=== PATIENT | male | born 2005 | race Caucasian/White ===

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

== ENCOUNTER 2025-08-04 23:13 | Emergency (ER) | payer SELFPAY ==
[2025-08-04 23:17] VITALS: BP 126/74; PULSE 64; RESP 18; TEMP 36.8; O2SAT 100
[2025-08-05] MEDS: TETANUS,DIPHTHERIA,AC PERTUSSIS ADULT (0.5 ML) BOOSTRIX IM (00:53)
--- NOTE | 2025-08-05 00:53 | ED_ITS ---
HPI - Skin/Abscess/Foreign Bdy General Chief complaint: Skin/Abscess/Foreign Body Stated complaint: foreign body foot Time Seen by Provider: 08/05/25 00:43 Source: patient Mode of arrival: ambulatory Limitations: no limitations History of Present Illness HPI narrative: This is a 20-year-old male that presents to the emergency department for foreign body in the right foot. Reports he stepped on a piece of metal. He was able to remove this himself. He presents for tetanus vaccination. Related Data Allergies Allergy/AdvReac Type Severity Reaction Status Date / Time No Known Drug Allergies Allergy Mild Other Verified 08/04/25 23:19 Review of Systems Review of Systems: All systems reviewed & are unremarkable except as noted in HPI and below Exam Narrative: GENERAL: Well-appearing, well-nourished, and in no acute distress. HEAD: Normocephalic, atraumatic. EYES: EOMI. EXTREMITIES: Normal range of motion. No edema. Small puncture wound to the right foot plantar surface SKIN: Warm, dry, no rash. NEURO: No focal deficits. Alert and oriented x3. PSYCH: Normal mood and affect Course Vital Signs Vital signs: Vital Signs Temperature 98.3 F 08/04/25 23:17 Pulse Rate 64 08/04/25 23:17 Respiratory Rate 18 08/04/25 23:17 Blood Pressure 126/74 08/04/25 23:17 Pulse Oximetry 100 08/04/25 23:17 Oxygen Delivery Room Air 08/04/25 23:17 Temperature 98.3 F 08/04/25 23:17 Pulse Rate 64 08/04/25 23:17 Respiratory Rate 18 08/04/25 23:17 Blood Pressure 126/74 08/04/25 23:17 Pulse Oximetry 100 08/04/25 23:17 Oxygen Delivery Room Air 08/04/25 23:17 MDM - Skin/Abscess/Foreign Bdy MDM Narrative Medical decision making narrative: Patient presents emergency department after removing a small piece of metal from his foot for a tetanus vaccination. Patient was updated. Will be started on prophylactic antibiotic. He is to follow-up with primary provider. He was given warnings to return to the ER Differential Diagnosis Differential diagnosis: Likely other (foreign body, vaccination) Critical Care Time Critical Care Time Critical Care Time: No Discharge Plan Discharge Clinical Impression: Tetanus-diphtheria vaccination administered at current visit Patient Disposition: Home Condition: Stable Instructions: Antibiotic Form Additional Instructions: Return to the emergency department if you experience fever, redness or swelling of your wound, abnormal drainage from your wound, or any other symptoms that are concerning to you. Apply antibiotic ointment daily. Do not soak the wound. Clean with mild soap and water daily. Take oral antibiotic as prescribed Follow-up with your primary care doctor for wound check Patient Language: Armenian Prescriptions: New cephalexin 500 mg capsule 500 mg PO Q8H 7 Days Qty: 21 0RF Follow-up/Referrals: UNKNOWN,DOCTOR [Primary Care Provider]
--- OUTSIDE RECORDS SUMMARY | 2025-08-05 02:16 | XMS_ITS | Clinical Summary ---
Author Organization [facility] [employer] Address [address] [place] [address] Care Team Providers Care Manager Assessment Name Role Phone Kya Ellie Cota PA-C Primary Care Provider [phone] Robyn Douglas MD Unavailable [phone] Robyn Douglas MD Unavailable [phone] Lavonne Esqueda Unavailable [phone] Source Comments [facility],non-owned Affiliates and Associated Physician Practices is amultiple site organization consisting of ambulatory clinics and hospital sitesin [place], [place], [place] and [place]. This disclosure is being madepursuant to the Care Everywhere program and may not contain all information available regarding this patient. Last updated 18.[facility] Allergies No known active allergies Medications * Be aware that medications may not be up to date on this document. Alwaysverify current medications with the patient. No known medications Active Problems No known active problems Encounters Date Type Department Care Team Description 05/11/2025 11:20 AM CDT Clinical Support [facility] - Ophthalmology [address] [place] [phone] Mikayla Hutchison MD History of detached retina repair (Primary Dx); Status post eye surgery 05/11/2025 11:15 AM CDT Clinical Support [facility] [address] [place] [phone] Mikayla Hutchison MD Status post eye surgery (Primary Dx) 05/11/2025 9:45 AM CDT Office Visit [facility] [address] [place] [phone] Mikayla Hutchison MD History of detached retina repair (Primary Dx); 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; 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 Travel from Last 3 Months Social History Tobacco Use Types Packs/Day Years Used Date Smoking Tobacco: Never Smokeless Tobacco: Never Tobacco Cessation:Counseling Given: Not Answered Alcohol Use Standard Drinks/Week Comments Yes 0 (1 standard drink = 0.6 oz pur e alcohol) social PHQ-2 Answer Date Recorded Patient Health Questionnaire-2 Score 0 01/30/2025 Sex and Gender Information Value Date Recorded Sex Assigned at Not on file Legal Sex Male 11:51 AM CDT Gender Identity Not on file Sexual Orientation Not on file Last Filed Vital Signs Vital Sign Reading Time Taken Comments Blood Pressure 119/68 12/11/2024 4:04 PM CABLE SPOOLER Pulse 113 12/11/2024 4:04 PM CABLE SPOOLER Temperature 36.3 C (97.4 F) 12/11/2024 3:29 PM CABLE SPOOLER Respiratory Rate 15 12/11/2024 4:04 PM CABLE SPOOLER Oxygen Saturation 95% 12/11/2024 4:04 PM CABLE SPOOLER Inhaled Oxygen Concentration - - Weight 82.6 kg (182 lb) 12/11/2024 11:25 AM CABLE SPOOLER Height 180.3 cm (5' 11) 12/11/2024 11:25 AM CABLE SPOOLER Body Mass Index 25.38 12/11/2024 11:25 AM CABLE SPOOLER Plan of Treatment Upcoming Encounters Date Type Department Care Team (Late st Contact Info) Description 11/13/2025 9:15 AM CABLE SPOOLER Office Visit [facility] [address] [place] [phone] Mikayla Hutchison MD [address] [place] [address] [place] [phone] Health Maintenance Due Date Last Done Comments HIV SCREENING 2019 HPV VACCINE (1 - Male 3-dose series) 2019 MENINGOCOCCAL (Group B) VACCINE SHARED DECISION-MAKING (1 of 2 - Standard) 2020 HEPATITIS C SCREENING 06/12/2022 DTAP/TDAP/TD VACCINES (1 - Tdap) 2023 HEPATITIS B VACCINE (1 of 3 - 19+ 3-dose series) 2023 COVID-19 VACCINE (1 - 2023-2 5 season) 2025 INFLUENZA VACCINE (#1) 2025 2, 09/26/2010 ZOSTER VACCINE (1 of 2) 2054 DEPRESSION SCREENING Completed 01/30/2025 HIB VACCINE Aged Out No longer eligi ble based on patient's age to complete this topic MENINGOCOCCAL GROUPS A/C/Y/W VACCINE Aged Out No longer eligible b ased on patient's age to complete this topic PNEUMOCOCCAL VACCINE Aged Out No long er eligible based on patient's age to complete this topic Medical Devices Implanted Type Area Power Technician Device Identifier Shelf Expiration Date Model / Serial / Lot Scleral Buckling Product Style 72 Silicone Sleeve Implanted:Qty: 1 on 12/11/2024 by Mikayla Hutchison MD at [facility] Left: Eye [employer] 02/03/2028 92-30 / N/A / [id number] Description:Soaked in 4 ml ( 40 mg/ml) Gentamicin. Strip Sclr 4mm Lakshmi Strl Implanted:Qty: 1 on 12/11/2024 by Mikayla Hutchison MD at [facility] Left: Eye [employer] 92-10 / / Procedures Procedure Name Priority Date/Time Associated Diagnosis Comments RETINAL ANALYSIS OCT Routine 05/11/2025 11:10 AM CDT Status post eye surgery History of detached retina repair from Last 3 Months Results * RETINAL ANALYSIS OCT (05/11/2025 11:10 AM CDT) Anatomical Region Laterality Modality Head External-Camera Photography Narrative 05/11/2025 11:49 AM CDT Images from the original result were not included. OCT : OD normal OS: residual pockets of SRF, improving from prior Bottom today us Mikayla Hutchison MD OPHTHALMOLOGY SCHED ORD W PACS Final Result from Last 3 Months Insurance [facility] Care Teams Manager Assessment Relationship Specialty Start Date End Date Ellie Boland PA-C [address] [facility] [address] [place] [phone] PCP - General Physician Wine Sales Representative 12/08/24 Robyn Douglas MD [address] [place] [address] [address] [place] [address] 12/08/24 Robyn Douglas MD [address] [place] [address] [address] [place] [address] Pediatrics 05/21/20 Lavonne Esqueda PA [address] [place] [phone] (Work) Physician Wine Sales Representative Physician Wine Sales Representative 05/18/20
--- OUTSIDE RECORDS SUMMARY | 2025-08-05 02:16 | XMS_ITS | Encounter Summary ---
Author Organization [facility] Address [address] [place] [address] Care Team Providers Care Silhouette Artist Name Role Phone Kya Ellie Cota PA-C Primary Care Provider [phone] Robyn Douglas MD Unavailable [phone] Robyn Douglas MD Unavailable [phone] Lavonne Esqueda Unavailable [phone] Reason for Visit * Reason Onset Date Comments Reschedule Appointment 01/19/2025 Encounter Details Date Type Department Care Team (Late st Contact Info) Description 01/19/2025 Telephone [facility] [address] [place] [phone] Mikayla Hutchison MD [address] [place] [address] [place] [phone] Reschedule Appointment Social History Tobacco Use Types Packs/Day Years Used Date Smoking Tobacco: Never Smokeless Tobacco: Never Alcohol Use Standard Drinks/Week Comments Yes 0 (1 standard drink = 0.6 oz pur e alcohol) social Sex and Gender Information Value Date Recorded Sex Assigned at Not on file Legal Sex Male 11:51 AM CDT Gender Identity Not on file Sexual Orientation Not on file documented as of this encounter Miscellaneous Notes * Telephone Encounter - Akin Eaton - 01/19/2025 10:45 AM CDT Mother is calling to fausto 3.26.25 appt # [phone] documented in this encounter Plan of Treatment Upcoming Encounters Date Type Department Care Team (Late st Contact Info) Description 11/13/2025 9:15 AM LABVIEW PROGRAMMER Office Visit [facility] [address] [place] [address], [place] [phone] Mikayla Hutcihson MD [address] [place] [address] [place] [phone] documented as of this encounter Visit Diagnoses Not on filedocumented in this encounter Care Teams Silhouette Artist Relationship Specialty Start Date End Date Ellie Boland, PA-C [address] [facility] [address] [place] [phone] PCP - General Physician Wood Furniture Assembler 12/08/24 Robyn Douglas MD [address] [place] [phone] 12/08/24 Robyn Douglas MD [address] [place] [phone] Pediatrics 05/21/20 Lavonne Esqueda PA [address] [place] [phone] (Work) Physician Wood Furniture Assembler Physician Wood Furniture Assembler 05/18/20 documented as of this encounter
--- OUTSIDE RECORDS SUMMARY | 2025-08-05 02:16 | XMS_ITS | Clinical Summary ---
Author Organization [facility] [address] [facility] Address [address] [place] [address] Care Team Providers Care Metal Cabinet Finisher Name Role Phone Ellie Boland Primary Care Provider [phone] Allergies No known active allergies Medications No known medications Active Problems Problem Noted Date Diagnosed Date Hematuria 10/07/2022 Assessment & Plan (10/07/2022 10:38 PM UNIFORM ATTENDANT): Hematuria without any pain. Will treat with Cipro 1 tablet b.i.d. for 7 days. Send urine for culture and urinalysis as well as obtain gonorrhea chlamydia by urine. Reviewed with patient if his symptoms worsen if he gets to where he is not able to urinate at all. Starts having fever chills or sweats or increased back pain he is to consider the ER if it is after hours our call the office for immediate evaluation. He verbalizes understanding. Will await culture results. Routine screening for STI (sexually transmitted infection) 10/07/2022 Assessment & Plan (10/07/2022 10:38 PM UNIFORM ATTENDANT): Hematuria without any pain. Will treat with Cipro 1 tablet b.i.d. for 7 days. Send urine for culture and urinalysis as well as obtain gonorrhea chlamydia by urine. Reviewed with patient if his symptoms worsen if he gets to where he is not able to urinate at all. Starts having fever chills or sweats or increased back pain he is to consider the ER if it is after hours our call the office for immediate evaluation. He verbalizes understanding. Will await culture results. Screening-pulmonary TB 09/04/2022 Assessment & Plan (09/04/2022 5:03 PM CDT): Patient needs screening for tuberculosis. Discussed QuantiFERON gold verses PPD. He prefers the placement of the ppd here in the office. He plans to return 48-72 hours for to be red. Also reviewed with patient that I need his immunization records specifically Tdap MMR varicella and polio to be able to complete his form. He will bring them back with him at his next visit to read the PPD. BMI 23.0-23.9, adult 04/12/2021 Assessment & Plan (09/04/2022 5:02 PM CDT): Weight/BMI is in healthy range. Continue healthy lifestyle to maintain. Assessment & Plan (04/12/2021 10:16 AM CDT): Weight/BMI is in healthy range. Continue healthy lifestyle to maintain. Annual physical exam 04/12/2021 Assessment & Plan (09/04/2022 5:03 PM CDT): Encouraged healthy lifestyle, good nutrition and exercise. Encouraged Calcium and Vitamin D and weight bearing exercise for bone health. Reviewed immunizations Reviewed age appropirate screenings. Assessment & Plan (04/12/2021 9:32 PM CDT): 1. Anticipatory guidance discussed. Specific topics reviewed: bicycle helmets, drugs, ETOH, and tobacco, importance of regular dental care, importance of regular exercise, importance of varied diet, limit TV, media violence, minimize junk food, safe storage of any firearms in the home, seat belts and sex; STD and prevention. 2. Weight management: The patient was counseled regarding nutritionand physical activity. 3. Development: on target 4. Immunizations today: per orders. History of previous adverse reactions to immunizations? no 5. Follow-up visit in 1 year for next well child visit, or sooner as needed. Resolved Problems Problem Noted Date Diagnosed Date Resolved Date Need for meningococcal vaccination 04/12/2021 09/04/2022 Assessment & Plan (04/12/2021 9:25 PM CDT): Updated in office today Immunizations Immunization Administration Dates Next Due DTaP 06/09/2009, 6,2004,2004, 2004 HPV9 05/06/2018 Hep A, Pediatric 04/14/2015,12/24/2006 Hep B Vaccine 2004,2004,2004 HiB 09/19/2005,2004,2004 ,2004 Influenza LAIV (Nasal) 08/29/2012,09/26/2010 Influenza, Unspecified 09/04/2022(Deferr ed: Patient Refused),09/04/2022(Deferred: Patient Refused),09/04/2022(Deferred: Patient Refused),12/06/2021(Deferred: Patient Refused),11/05/2020(Deferred: Patient Refused) MMR 06/09/2009,09/19/2005 Meningococcal B, unspecified 06/19/2015 Meningococcal MCV4P (Menactra) 04/12/2021,2014 PPD TEST 09/04/2022 Pneumococcal Conjugate 7-Valent 09/19/2005,06/05,03/28/2005,2004 Polio, Unspecified 06/09/2009,12/21/2005, 004,2004 Tdap 06/19/2015 Varicella 06/09/2009,06/19/2005 Family History Medical History Relation Name Comments Hyperlipidemia Father Hypertension Mother Relation Name Status Comments Father Alive Mother Alive Social History Tobacco Use Types Packs/Day Years Used Date Smoking Tobacco: Never Smokeless Tobacco: Never AUDIT-C Answer Date Recorded Q1: How often do you have a drink containing alc ohol? Never 04/12/2021 Average Number of Drinks Not on file 021 Q3: How often do you have si x or more drinks on one occasion? Never 04/12/2021 PHQ-2 Answer Date Recorded PHQ-2 Total Score (If total score is 3 or more points, staff should administer the PHQ-9) 0 09/04/2022 Personal Safety Answer Date Recorded Getting School Help Needed Not on file 11/08 Sex and Gender Information Value Date Recorded Sex Assigned at Not on file Legal Sex Male 11:50 PM UNIFORM ATTENDANT Gender Identity Not on file Sexual Orientation Not on file Obstetrics History Last Filed Vital Signs Vital Sign Reading Time Taken Comments Blood Pressure 110/70 10/04/2022 3:50 PM UNIFORM ATTENDANT Pulse 84 10/04/2022 3:50 PM UNIFORM ATTENDANT Temperature 37.1 C (98.7 F) 10/04/2022 3:50 PM UNIFORM ATTENDANT Respiratory Rate 16 09/04/2022 3:43 PM CDT Oxygen Saturation 98% 10/04/2022 3:50 PM UNIFORM ATTENDANT Inhaled Oxygen Concentration - - Weight 75.2 kg (165 lb 11.2 oz) 10/04/2022 3:50 PM UNIFORM ATTENDANT Height 177.8 cm (5' 10) 10/04/2022 3:50 PM UNIFORM ATTENDANT Body Mass Index 23.78 10/04/2022 3:50 PM UNIFORM ATTENDANT Plan of Treatment Health Maintenance Due Date Last Done Comments Hepatitis C Screening 2004 HPV Vaccines (2 - Male 2-dos e series) 11/06/2018 05/06/2018 Meningococcal B Vaccine (1 o f 2 - Standard) 2020 06/19/2015 Depression Screening 09/04/2023 09/04/2022, 04/12/20 21 Regular Well Visit/Exam 18-64 09/04/2023 09/04/2022 DTaP/Tdap/Td Vaccine (7 - Td or Tdap) 06/19/2025 06/19/2015, 06/09/2009, 12/21/2005, Additional history exists Covid-19 Vaccine (3 - 2024-2 6 season) 2025 2021, 05/26/2021 Influenza Vaccine (#1) 2025 08/29/2012, 2009 Hepatitis B Screening Completed 2004 , 2004, 2004 Pneumococcal vaccine <65 Completed 005, 06/05/2005, 03/28/2005, Additional history exists Varicella Vaccines Completed 06/09/2009, 06/19/2005 Meningococcal Vaccine Completed 04/12/2021, 015 Insurance 1963 [address] [place] [id number] [employer] [facility] [employer] PL[employer] Care Teams Metal Cabinet Finisher Relationship Specialty Start Date End Date Ellie Boland PA [address] [address] PCP - General Internal Medicine 03/18/21
== END 2025-08-05 00:59 | disposition home or self-care (01) ==
LOC: ANHED 08-05 00:59
PROVIDERS: Emergency Provider Physician Assistant
DX: S90.851A Superficial foreign body, right foot, initial encounter (principal); Z23 Encounter for immunization; W45.8XXA Other foreign body or object entering through skin, initial encounter
CPT/HCPCS: 90471; 90715; 99283